=== PATIENT | male | born 1985 | race Caucasian/White ===

== ENCOUNTER 2021-04-27 07:54 | Emergency (ER) | payer BC, OTHER ==
[~2021-04-27] VITALS: Ht 165.1 cm; Wt 105.0 kg
[2021-04-27] MEDS ORDERED: ibuprofen (11:05)
[2021-04-27] MEDS ORDERED: FLEXIRIL (11:06)
[2021-04-27] MEDS ORDERED: KETOROLAC 60MG 2ML VIAL IM ONE (11:20)
[2021-04-27] MEDS ORDERED: diazePAM 10 MG TAB PO ONE (11:20)
[2021-04-27] MEDS ORDERED: LIDOCAINE 5% (LIDODERM) PATCH TD ONE (11:20)
[2021-04-27] MEDS ORDERED: METH-1165 PO (12:12)
[2021-04-27] MEDS ORDERED: PRED20TA PO (12:12)
[2021-04-27 12:18] VITALS: BP 142/92
[2021-04-27] MEDS ORDERED: **NOTE PATIENT COMMENT** MISC XX ONE (21:00)
== END 2021-04-27 12:27 | disposition home or self-care (01) ==
LOC: M ED 07:54
DX: M54.50 Low back pain, unspecified (principal)
CPT/HCPCS: 72131; 96372; 99283; J1885